=== PATIENT | female | born 1985 | race African-American/Black ===

== ENCOUNTER 2024-05-30 16:49 | Emergency (ER) | payer OTHER ==
[~2024-05-30] VITALS: Ht 157.5 cm; Wt 124.7 kg
[2024-05-30 17:20] VITALS: TEMP 98.4
[2024-05-30] MEDS ORDERED: OLMESARTAN-HCT1 EAC2 (17:35)
[2024-05-30 18:28] VITALS: PULSE 73; RESP 16; O2SAT 96
== END 2024-05-30 18:51 | disposition home or self-care (01) ==
LOC: FSED 16:52
DX: I10 Essential (primary) hypertension (principal); D64.9 Anemia, unspecified; E87.6 Hypokalemia; E78.5 Hyperlipidemia, unspecified; R94.31 Abnormal electrocardiogram [ECG] [EKG]
CPT/HCPCS: 70450; 80053; 80307; 81003; 82553; 84484; 85025; 93005; 99284